=== PATIENT | female | born 2000 | race Caucasian/White ===

== ENCOUNTER → 2021-02-06 | Outpatient (CLI) | payer OTHER, MEDICAID ==
--- NOTE | 2021-02-06 15:53 | Diagnostic Imaging Report ---
INDICATION: Right-sided shoulder pain. TIME OF EXAM: 1:31 p.m. FINDINGS: There is very slight right convexity lower thoracic scoliotic curvature. This measures approximately 10 degrees. The vertebral body heights are maintained. Pedicles and paraspinous line are intact. There is normal kyphotic curvature. No fractures are identified. IMPRESSION: Mild right convexity thoracic scoliotic curvature. Dictated by: Dictated on workstation # [id number]
== END ==
LOC: RAD FS 13:01
PROVIDERS: ATTEND Nurse Practitioner
DX: M41.84 Other forms of scoliosis, thoracic region (principal); M25.511 Pain in right shoulder
CPT/HCPCS: 72072

== ENCOUNTER 2021-02-21 23:43 | Emergency (ER) | payer MEDICAID, OTHER ==
[~2021-02-21] VITALS: Ht 167 cm; Wt 65.4 kg
[2021-02-22 00:14] LABS: BILIRUBIN,URINE NEGATIVE (NEGATIVE); CLARITY,URINE CLEAR; COLOR,URINE YELLOW; GLUCOSE, URINE (UA) NEGATIVE (NEGATIVE); KETONES,URINE NEGATIVE (NEGATIVE); LEUKOCYTE ESTERASE ,URINE 1+ (NEGATIVE); NITRITE,URINE NEGATIVE (NEGATIVE); PROTEIN,URINE NEGATIVE (NEGATIVE)
[2021-02-22 00:21] LABS: BACTERIA,URINE NEGATIVE /HPF; SQUAMOUS EPITHELIAL CELL,UR 0-2 /HPF
[2021-02-22] MEDS ORDERED: NS IV 1000 ML 1,000 ML IV STA (00:23)
[2021-02-22] MEDS ORDERED: ONDANSETRON 4 MG/2 ML (SDV) Z0FRAN IVP STA (00:23)
[2021-02-22] MEDS ORDERED: KETOROLAC 30 MG/ML VIAL IVP STA (00:23)
--- NOTE | 2021-02-22 00:26 | ED GI ---
General Chief Complaint: Abdominal/GI Problems Stated Complaint: LOWER ABDOMINAL PAIN Nursing Triage Note: Pt c/o RLQ abd pain x 5 days with n/v. Pt reports vomiting x 2 today. Reports "some" pain with urination. Source of Information: Patient History of Present Illness Date Seen by Provider: Feb 21, 2021 Time Seen by Provider: 23:49 Initial Comments 20-year-old female presenting with over 5 days of right sided abdominal pain and back pain. She states that the pain is worse with movement and palpation. She has nausea, vomiting, diarrhea over the last 5 days. She also has some mild burning and discomfort with urination. She denies any vaginal discharge. Her last menstrual period was over a year ago as she has an implant for contraception. She states she had something similar four years ago and had an ovarian cyst causing her symptoms then. Her mother advised her to come to the emergency department to make sure her appendix was not causing the pain. Patient states it feels like she is being stabbed with knives in her lower abdomen on the right side. Timing/Duration: 5-6 Days Severity/Quality: Severe, Sharp, Stabbing Location: RUQ, RLQ Radiation: RUQ, RLQ Activities at Onset: None Modifying Factors: Worsens With Movement, Worsens With Palpation, Worsens With Vomiting Associated Symptoms: Back Pain (right side); No Chest Pain, No Diaphoresis, No Fever/Chills, No Fatigue, No Headache, No Heartburn; Nausea/Vomiting; No Rash, No Shortness of Air, No Swelling/Mass in Abdomen, No Syncope, No Weakness; Other (diarrhea) Allergies and Home Medications Allergies Coded Allergies: No Known Allergies (Verified Allergy, Unknown, 02/22/21) Patient Home Medication List Home Medication List Reviewed: Yes Naproxen (Naproxen) 500 Mg Tablet, 500 MG PO Q12H PRN for pain Prescribed by: TESS QUICK on 02/22/21223 Nitrofurantoin Macrocrystal (Nitrofurantoin) 100 Mg Capsule, 100 MG PO BID Prescribed by: TESS QUICK on 02/22/21223 Ondansetron (Ondansetron Odt) 4 Mg Tab.rapdis, 4 MG PO Q6H PRN for NAUSEA/VOMITING Prescribed by: TESS QUICK on 02/22/21223 Review of Systems Review of Systems Constitutional: No chills, No fever EENTM: No Symptoms Reported Respiratory: No Symptoms Reported Cardiovascular: No Symptoms Reported Gastrointestinal: See HPI Genitourinary: See HPI Musculoskeletal: see HPI, back pain (Recent diagnosis of scoliosis with back pain, however is also having right-sided back pain now with her abdominal pain) Skin: no symptoms reported Psychiatric/Neurological: Anxiety Past [id number] Hx Patient Social History Tobacco Use?: No Use of E-Cig and/or Vaping dev: No Substance use?: No Alcohol Use?: No Pt feels they are or have been: No Immunizations Up To Date Influenza Vaccine Up-to-Date: No; Not Current First/Initial COVID19 Vaccinat: denies Past Medical History Surgery/Hospitalization HX: hx of Ovarian Cysts Surgeries: No Reproductive Disorders: Yes Female Reproductive Disorders: Ovarian Cyst Sexually Transmitted Disease: No Physical Exam Vital Signs Vital Signs - First Documented 02/22/21 00:02 Temp 36.9 Pulse 87 Resp 17 B/P (MAP) 129/73 (91) Pulse Ox 100 O2 Delivery Room Air Capillary Refill : Less Than 3 Seconds Height/Weight/BMI Height: '" Weight: lbs. oz. kg; 23.00 BMI Method: General Appearance: WD/WN, no apparent distress HEENT: PERRL/EOMI, pharynx normal Neck: non-tender, full range of motion, supple, normal inspection Respiratory: chest non-tender, lungs clear, normal breath sounds, no respiratory distress, no accessory muscle use Cardiovascular: normal peripheral pulses, regular rate, rhythm Gastrointestinal: normal bowel sounds, soft, no pulsatile mass, guarding, rebound, tenderness Rectal: deferred Extremities: normal range of motion, non-tender, normal capillary refill Back: CVA tenderness (R), muscle spasm; No vertebral tenderness Neurologic/Psychiatric: alert, normal mood/affect, oriented x 3 Skin: normal color, warm/dry Images 1 - Tenderness with palpation, guarding and rebound in the right lower quadrant Progress/Results/Core Measures Results/Orders Lab Results Laboratory Tests Test 02/21/21 23:50 02/22/21 00:25 Range/Units Urine Color YELLOW Urine Clarity CLEAR Urine pH 7.0 5-9 Urine Specific Hodgen <=1.005 1.016-1.022 Urine Protein NEGATIVE NEGATIVE Urine Glucose (UA) NEGATIVE NEGATIVE Urine Ketones NEGATIVE NEGATIVE Urine Nitrite NEGATIVE NEGATIVE Urine Bilirubin NEGATIVE NEGATIVE Urine Urobilinogen 0.2 < = 1.0 MG/DL Urine Leukocyte Esterase 1+ H NEGATIVE Urine RBC (Auto) NEGATIVE NEGATIVE Urine RBC NONE /HPF Urine WBC 5-10 H /HPF Urine Squamous Epithelial Cells 0-2 /HPF Urine Crystals NONE /LPF Urine Bacteria NEGATIVE /HPF Urine Casts NONE /LPF Urine Mucus NEGATIVE /LPF Urine Culture Indicated YES Urine Opiates Screen NEGATIVE NEGATIVE Urine Oxycodone Screen NEGATIVE NEGATIVE Urine Methadone Screen NEGATIVE NEGATIVE Urine Propoxyphene Screen NEGATIVE NEGATIVE Urine Barbiturates Screen NEGATIVE NEGATIVE Ur Tricyclic Antidepressants Screen NEGATIVE NEGATIVE Urine Phencyclidine Screen NEGATIVE NEGATIVE Urine Amphetamines Screen NEGATIVE NEGATIVE Urine Methamphetamines Screen NEGATIVE NEGATIVE Urine Benzodiazepines Screen NEGATIVE NEGATIVE Urine Cocaine Screen NEGATIVE NEGATIVE Urine Cannabinoids Screen NEGATIVE NEGATIVE White Blood Count 7.3 4.3-11.0 10^3/uL Red Blood Count 4.25 3.80-5.11 10^6/uL Hemoglobin 12.7 11.5-16.0 g/dL Hematocrit 38 35-52 % Mean Corpuscular Volume 89 80-99 fL Mean Corpuscular Hemoglobin 30 25-34 pg Mean Corpuscular Hemoglobin Concent 34 32-36 g/dL Red Cell Distribution Width 12.1 10.0-14.5 % Platelet Count 280 130-400 10^3/uL Mean Platelet Volume 9.4 9.0-12.2 fL Immature Granulocyte % (Auto) 0 % Neutrophils (%) (Auto) 42 42-75 % Lymphocytes (%) (Auto) 49 H 12-44 % Monocytes (%) (Auto) 7 0-12 % Eosinophils (%) (Auto) 2 0-10 % Basophils (%) (Auto) 1 0-10 % Neutrophils # (Auto) 3.1 1.8-7.8 X 10^3 Lymphocytes # (Auto) 3.5 1.0-4.0 X 10^3 Monocytes # (Auto) 0.5 0.0-1.0 X 10^3 Eosinophils # (Auto) 0.2 0.0-0.3 10^3/uL Basophils # (Auto) 0.1 0.0-0.1 10^3/uL Immature Granulocyte # (Auto) 0.0 0.0-0.1 10^3/uL Sodium Level 137 135-145 MMOL/L Potassium Level 4.2 3.6-5.0 MMOL/L Chloride Level 103 98-107 MMOL/L Carbon Dioxide Level 25 21-32 MMOL/L Anion Gap 9 5-14 MMOL/L Blood Urea Nitrogen 11 7-18 MG/DL Creatinine 0.86 0.60-1.30 MG/DL Estimat Glomerular Filtration Rate 85 BUN/Creatinine Ratio 13 Glucose Level 115 H 70-105 MG/DL Calcium Level 9.3 8.5-10.1 MG/DL Corrected Calcium 9.1 8.5-10.1 MG/DL Total Bilirubin 0.2 0.1-1.0 MG/DL Aspartate Amino Transf (AST/SGOT) 16 5-34 U/L Alanine Aminotransferase (ALT/SGPT) 11 0-55 U/L Alkaline Phosphatase 76 40-136 U/L Total Protein 6.9 6.4-8.2 GM/DL Albumin 4.2 3.2-4.5 GM/DL Lipase 38 8-78 U/L My Orders Orders - TESS QUICK MD Urine Bedside (02/21/21 23:48) Ua Culture If Indicated (02/21/21 23:48) Drug Screen Stat (Urine) (02/21/21 23:48) Urine Culture (02/21/21 23:50) Comprehensive Metabolic Panel (02/22/21 00:23) Lipase (02/22/21 00:23) Ed Iv/Invasive Line Start (02/22/21 00:23) Cbc With Automated Diff (02/22/21 00:23) Ct Abdomen/Pelvis Wo (02/22/21 00:23) Ns Iv 1000 Ml (Sodium Chloride 0.9%) (02/22/21 00:23) Ondansetron Injection (Zofran Injectio (02/22/21 00:23) Ketorolac Injection (Toradol Injection) (02/22/21 00:23) Rx-Ondansetron Po (Rx-Zofran Po) (02/22/21 01:45) Rx-Hydrocodone/Apap 5-325 Mg (Rx-Vicodin (02/22/21 01:45) Ceftriaxone (Rocephin) (02/22/21 01:31) Medications Given in ED Current Medications Medications Dose Ordered Sig/Sandra Route Start Time Stop Time Status Last Admin Dose Admin Acetaminophen/ Hydrocodone Bitart 1 ea Q6H PRN PO 02/22/21 01:45 02/22/21 02:36 DC 02/22/21 01:53 1 EA Ondansetron HCl 4 mg Q6H PRN PO 02/22/21 01:45 02/22/21 02:36 DC 02/22/21 01:53 4 MG Vital Signs/I&O 02/22/21 02/22/21 02/22/21 00:02 01:30 02:30 Temp 36.9 Pulse 87 69 70 Resp 17 17 15 B/P (MAP) 129/73 (91) 120/65 112/66 Pulse Ox 100 98 99 O2 Delivery Room Air Room Air Room Air Blood Pressure Mean: 91 Progress Progress Note #1: Progress Note Obtain urinalysis with bedside test. Check basic labs as well as drug screen to check for other sources of pain and symptoms. Give IV fluids for hydration, Zofran for nausea, Toradol for pain. CT scan of the abdomen and pelvis without contrast to evaluate for kidney stone versus appendicitis versus colitis versus diverticulitis versus ovarian cyst. Progress Note #2: Progress Note Negative urine test. The urinalysis did show diluted urine but she still had leukocyte esterase and white blood cells to go along with a UTI. The CBC showed normal WBC count, Chemistry without acute significant abnormality to account for her symptoms. Pt reported improved pain with treatment in the ED. She told me her pain was down to 3/10. Progress Note #3: Progress Note CT scan does not show any acute significant abnormality to account for her pain. There is no appendicitis, colitis, diverticulitis, bowel obstruction. Counseled patient on results and advised that an outpatient ultrasound could be ordered for evaluating possible ovarian cyst or pelvic abnormality. However the CT scan does not demonstrate any large abnormality in this area. In the meantime we will try treating with medicine for pain and symptomatic relief. Encourage establishing a primary care physician locally. Advised to follow-up with clinic for continued current symptoms and other concerns. Diagnostic Imaging Diagonstic Imaging: CT Plain Films/CT/US/NM/MRI: abdomen, pelvis Comments Impression: 1. No renal calculi or obstructive changes noted. 2. Appendix not definitely identified. Read by radiologist Dr. Juan Peck MD [id number] and faxed at [phone] Reviewed: Reviewed Night Hawk Study, Reviewed by Me Departure Impression Primary Impression: Right lower quadrant abdominal pain Additional Impression: Nausea vomiting and diarrhea Disposition: HOME, SELF-CARE Condition: Stable Departure-Patient Inst. Decision time for Depature: 02:21 Referrals: NO,LOCAL PHYSICIAN (PCP) Primary Care Physician [facility] OF Patient Instructions: Pelvic Pain ED, Nausea and Vomiting, Adult ED, Diarrhea, Adult ED Add. Discharge Instructions: Call Radiology scheduling between 7 and 730 am to see about scheduling ultrasound today. The phone number is [phone]. Try to have a full bladder when you come in to be seen for the ultrasound. In the meantime, if you have more nausea take the dissolving zofran medicine to help settle your stomach. For severe pain take the Hydrocodone with Acetaminophen. Take the full course of antibiotics to treat for urine infection as well. You could call [facility] at [phone] to establish care with a local primary provider for follow up as well. All discharge instructions reviewed with patient and/or family. Voiced und erstanding. Scripts Naproxen (Naproxen) 500 Mg Tablet 500 MG PO Q12H PRN for pain for 3 Days, #6 TAB 0 Refills Prov: TESS QUICK MD 02/22/21 Nitrofurantoin Macrocrystal (Nitrofurantoin) 100 Mg Capsule 100 MG PO BID for UTI for 7 Days, #14 CAP 0 Refills Prov: TESS QUICK MD 02/22/21 Ondansetron (Ondansetron Odt) 4 Mg Tab.rapdis 4 MG PO Q6H PRN for NAUSEA/VOMITING for 3 Days, #12 TAB 0 Refills Prov: TESS QUICK MD 02/22/21 Work/School Note: Work Release Form Date Seen in the Emergency Department: Feb 21, 2021 Return to Work: Feb 23, 2021 Restrictions: No Restrictions TESS QUICK MD Feb 22, 2021 00:26
[2021-02-22 00:37] LABS: AMPHETAMINE SCREEN, URINE NEGATIVE (NEGATIVE); BARBITURATE SCREEN URINE NEGATIVE (NEGATIVE); BENZODIAZEPINES SCREEN URINE NEGATIVE (NEGATIVE); CANNABINOID SCREEN, URINE NEGATIVE (NEGATIVE); COCAINE SCREEN URINE NEGATIVE (NEGATIVE); METHADONE STAT NEGATIVE (NEGATIVE); METHAMPHETAMINE SCREEN URINE S NEGATIVE (NEGATIVE); OPIATE SCREEN URINE NEGATIVE (NEGATIVE); OXYCODONE STAT NEGATIVE (NEGATIVE); PROPOXYPHENE STAT NEGATIVE (NEGATIVE); TRICYCLIC ANTIDEPRESSANTS SCRE NEGATIVE (NEGATIVE)
[2021-02-22 00:42] LABS: HEMATOCRIT 38 % (35-52); HEMOGLOBIN 12.7 g/dL (11.5-16.0); MEAN CORPUSCULAR HEMOGLOBIN 30 pg (25-34); MEAN CORPUSCULAR HGB CONC 34 g/dL (32-36); MEAN CORPUSCULAR VOLUME 89 fL (80-99); MEAN PLATELET VOLUME 9.4 fL (9.0-12.2); PLATELET COUNT 280 10^3/uL (130-400); WHITE BLOOD COUNT 7.3 10^3/uL (4.3-11.0)
[2021-02-22 00:43] LABS: BASOPHILS # (AUTO) 0.1 10^3/uL (0.0-0.1); BASOPHILS % (AUTO) 1 % (0-10); EOSINOPHILS # (AUTO) 0.2 10^3/uL (0.0-0.3); EOSINOPHILS % (AUTO) 2 % (0-10); LYMPHOCYTES # (AUTO) 3.5 X 10^3 (1.0-4.0); LYMPHOCYTES % (AUTO) 49 % (12-44); MONOCYTES # (AUTO) 0.5 X 10^3 (0.0-1.0); MONOCYTES % (AUTO) 7 % (0-12); NEUTROPHILS # (AUTO) 3.1 X 10^3 (1.8-7.8); NEUTROPHILS % (AUTO) 42 % (42-75)
[2021-02-22 01:03] LABS: BILIRUBIN,TOTAL 0.2 MG/DL (0.1-1.0); CALCIUM 9.3 MG/DL (8.5-10.1); CREATININE SERUM 0.86 MG/DL (0.60-1.30); POTASSIUM 4.2 MMOL/L (3.6-5.0); TOTAL PROTEIN 6.9 GM/DL (6.4-8.2)
[2021-02-22 01:04] LABS: ALBUMIN 4.2 GM/DL (3.2-4.5)
[2021-02-22] MEDS ORDERED: cefTRIAXone 500 MG in WATER (STERILE) FOR INJECTION 5 ML IV STA (01:31)
[2021-02-22] MEDS ORDERED: RX-ONDANSETRON 4 MG ODT (ZOFRAN) PPK #4 PO PRN (01:45)
[2021-02-22] MEDS ORDERED: NAPR-915 PO (02:24)
[2021-02-22] MEDS ORDERED: NITR100C PO (02:24)
[2021-02-22] MEDS ORDERED: ONDA4TAB11 PO (02:24)
[2021-02-22 02:30] VITALS: BP 112/66
--- NOTE | 2021-02-22 05:48 | Diagnostic Imaging Report ---
PROCEDURE: CT abdomen and pelvis without contrast. TECHNIQUE: Multiple contiguous axial images were obtained through the abdomen and pelvis without the use of intravenous contrast. Auto Exposure Controls were utilized during the CT exam to meet ALARA standards for radiation dose reduction. INDICATION: Right flank pain x5 days Lung bases are clear. Liver appears normal. Gallbladder is contracted. Spleen is not enlarged. Pancreas appears normal. Kidneys and adrenals appear normal. There is large amount of food residue in the stomach. Small bowel is not dilated. There is no evidence for appendicitis. Uterus and ovaries appear normal. Urinary bladder is normal. There is no intraperitoneal free air or free fluid. IMPRESSION: No acute abnormality seen in the abdomen or pelvis I agree with preliminary interpretation. Dictated by: Dictated on workstation # [id number]
--- OUTSIDE RECORDS SUMMARY | 2021-02-26 10:24 | XMS REPORT | Clinical Summary ---
Author Author [facility] ity Organization [facility] it Address Unknown Phone Unavailable Care Team Providers [facility] [place] Visitor Name Role Phone PP Unavailable Allergies Not on File Medications Not on file Active Problems Not on file Social History Date Tobacco Use Types Packs/Day Years Used Never Assessed Sex Assigned at Date Recorded Not on file Plan of Treatment Not on file Results Not on filefrom Last 3 Months
== END 2021-02-22 02:30 | disposition home or self-care (01) ==
LOC: EDUNIT# 23:43 → ER FS 23:46
DX: R10.31 Right lower quadrant pain (principal); R11.2 Nausea with vomiting, unspecified; R19.7 Diarrhea, unspecified
CPT/HCPCS: 36415; 74176; 80053; 80306; 81000; 83690; 84703; 85025; 87088

== ENCOUNTER → 2021-02-23 | Outpatient (CLI) | payer MEDICAID ==
[~2021-02-23] MED LIST: NAPR-915 PO; NITR100C PO; ONDA4TAB11 PO
== END ==
LOC: RAD 13:41
PROVIDERS: ATTEND Family Medicine
DX: R10.31 Right lower quadrant pain (principal); Z87.42 Personal history of other diseases of the female genital tract